=== PATIENT | male | born 1965 | race American Indian/Alaskan Native ===

== ENCOUNTER 2020-08-28 15:33 | Emergency (ER) | payer SELFPAY ==
--- NOTE | 2020-08-28 16:15 | Event Note ---
ED Screening Note Date of service: 08/28/20 Time: 16:12 ED Screening Note: Patient complains of substernal pain x2 days States he thought it was heartburn he has been taking Tums and Maalox without improvement in his symptoms Denies past medical history shortness of breath This initial assessment/diagnostic orders/clinical plan/treatment(s) is/are subject to change based on patients health status, clinical progression and re- assessment by fellow clinical providers in the ED. Further treatment and workup at subsequent clinical providers discretion. Patient/guardian urged not to elope from the ED as their condition may be serious if not clinically assessed and managed. Initial orders include: CXR ekg labs
[2020-08-28 16:48] LABS: Basophils # (Auto) 0.1 K/mm3 (0.0-0.1); Basophils % (Auto) 1.5 % (0.0-1.8); Eosinophils # (Auto) 0.2 K/mm3 (0.0-0.4); Eosinophils % (Auto) 4.1 % (0.0-4.3); Hematocrit 39.8 % (35.5-45.6); Hemoglobin 13.2 gm/dl (11.8-15.2); Lymphocytes # (Auto) 1.5 K/mm3 (1.2-5.4); Lymphocytes % (Auto) 30.8 % (13.4-35.0); Mean Corpuscular HGB Conc 33 % (32-34); Mean Corpuscular Volume 85 fl (84-94); Monocytes # (Auto) 0.3 K/mm3 (0.0-0.8); Monocytes % (Auto) 6.6 % (0.0-7.3); Platelet Count 321 K/mm3 (140-440); Red Cell Distribution Width 12.9 % (13.2-15.2)
[2020-08-28 17:00] LABS: Alanine Aminotransferase 15 units/L (7-56); Albumin 4.3 g/dL (3.9-5); BUN/Creatinine Ratio 26; Blood Urea Nitrogen 21 mg/dL (9-20); Calcium 10.2 mg/dL (8.4-10.2); Hemolysis Index 7
--- NOTE | 2020-08-28 17:11 | XRay Report ---
CHEST 2 VIEWS INDICATION: Chest Pain. COMPARISON: None FINDINGS: Support devices: None. Heart: Within normal limits. Lungs: No acute air space or interstitial disease. Pleura: No significant pleural effusion. No pneumothorax. Additional findings: None. IMPRESSION: 1. No acute findings. Signer Name: Jatinder Manzo MD Signed: 08/28/2020 5:07 PM Workstation Name: [id number]
[2020-08-28] MEDS ORDERED: LIDOCAINE VISCOUS 2% 15 ML ORAL LIQD PO ONE (20:45)
[2020-08-28] MEDS ORDERED: ALUM-MAG HYDROXIDE-SIMETHICONE 200-200-20MG/5ML ORAL LIQD 30 ML PO ONE (20:45)
[2020-08-28 21:05] VITALS: BP 165/91
--- NOTE | 2020-08-28 21:13 | Emergency Department Report ---
ED Chest Pain HPI - General Chief Complaint: Chest Pain Stated Complaint: HEARTBURN Time Seen by Provider: 08/28/20 16:11 Source: patient Mode of arrival: Ambulatory Limitations: No Limitations - History of Present Illness Initial Comments: 55-year-old male, history of acid reflux, presents to ED with acid reflux symptoms. Patient reports symptom onset after eating last night. Patient states he ate "soul food" for dinner, which included turkey wings, macaroni and cheese, green beans. Patient reports burning sensation in epigastric and substernal chest area, worse when laying down. Improved with sitting up. He reports this always happens when he eats certain foods. Patient denies any nausea or vomiting, shortness of breath, diaphoresis. Patient states he took some [id number]-[id number] medication but that has not improved his symptoms. Annel nt reports when this happened before and he came to the emergency room he was given something to drink which made his symptoms better. Patient reports minimal alcohol use. However, patient does smoke cigarettes. States he is attempting to stop smoking. MD Complaint: chest pain -: Last night Onset: after eating Pain Location: substernal, epigastric Pain Radiation: none Severity: moderate Severity scale (0 -10): 0 Quality: other (Burning) Consistency: intermittent Improves With: leaning foward Worsens With: eating re: denies: nausea, vomting, diaphoresis, dyspnea Other Symptoms: denies: cough, fever, leg swelling - Related Data Previous Rx's Medication Instructions Recorded Last Taken Type Ibuprofen [Motrin] 800 mg PO Q8H PRN #60 tablet 01/25/15 Unknown Rx Penicillin Vk [Veetids TAB] 500 mg PO QID #40 tablet 01/25/15 Unknown Rx traMADoL [Ultram] 50 mg PO Q6HR PRN #14 tablet 01/25/15 Unknown Rx Pantoprazole [Protonix] 40 mg PO QDAY #30 tablet 08/28/20 Unknown Rx Allergies Allergy/AdvReac Type Severity Reaction Status Date / Time No Known Allergies Allergy Unverified 01/25/15 02:33 Heart Score - HEART Score History: Slightly suspicious EKG: Normal Age: 45-65 Risk factors: 1-2 risk factors Troponin: < normal limit HEART Score: 2 ED Review of Systems ROS: Stated complaint: HEARTBURN Other details as noted in HPI Comment: All other systems reviewed and negative Constitutional: denies: chills, fever Respiratory: denies: shortness of breath Cardiovascular: chest pain Gastrointestinal: denies: nausea, vomiting ED Past Medical Hx - Surgical History Additional Surgical History: L ear surgery as a child - Social History Smoking Status: Current Every Day Smoker Substance Use Type: None - Medications Home Medications: Home Medications Medication Instructions Recorded Confirmed Last Taken Type Ibuprofen [Motrin] 800 mg PO Q8H PRN #60 tablet 01/25/15 Unknown Rx Penicillin Vk [Veetids TAB] 500 mg PO QID #40 tablet 01/25/15 Unknown Rx traMADoL [Ultram] 50 mg PO Q6HR PRN #14 tablet 01/25/15 Unknown Rx Pantoprazole [Protonix] 40 mg PO QDAY #30 tablet 08/28/20 Unknown Rx ED Physical Exam - General Limitations: No Limitations General appearance: alert, in no apparent distress - Head Head exam: Present: atraumatic, normocephalic - Eye Eye exam: Present: normal appearance, EOMI - ENT ENT exam: Present: mucous membranes moist - Neck Neck exam: Present: normal inspection - Respiratory Respiratory exam: Present: normal lung sounds bilaterally. Absent: respiratory distress - Cardiovascular Cardiovascular Exam: Present: regular rate, normal rhythm - GI/Abdominal GI/Abdominal exam: Present: soft. Absent: distended, tenderness - Extremities Exam Extremities exam: Present: normal inspection - Neurological Exam Neurological exam: Present: alert, oriented X3 - Psychiatric Psychiatric exam: Present: normal affect, normal mood - Skin Skin exam: Present: warm, dry, intact, normal color ED Course Vital Signs 08/28/20 08/28/20 16:12 21:04 Temperature 98.5 F Pulse Rate 71 75 Respiratory 18 16 Rate Blood Pressure 98/78 165/91 [Right] O2 Sat by Pulse 97 98 Oximetry ED Medical Decision Making - Lab Data Result diagrams: 08/28/20 16:21 08/28/20 16:21 - EKG Data -: EKG Interpreted by Me EKG shows normal: sinus rhythm, axis, intervals, QRS complexes, ST-T waves Rate: normal - EKG Data Interpretation: no acute changes - Radiology Data Radiology results: report reviewed, image reviewed - Medical Decision Making 55-year-old male with GERD. EKG shows no ST changes. Troponin negative x2. Patient reports relief with GI cocktail. Will discharge at this time. Prescriptions given. Return precautions given. - Differential Diagnosis GERD, ACS Critical care attestation.: If time is entered above; I have spent that time in minutes in the direct care of this critically ill patient, excluding procedure time. ED Disposition Clinical Impression: GERD (gastroesophageal reflux disease) Disposition: TO HOME OR SELFCARE Is pt being admited?: No Condition: Stable Instructions: Indigestion, [id number], Food Choices for Gastroesophageal Reflux Disease, Adult Prescriptions: Pantoprazole [Protonix] 40 mg PO QDAY #30 tablet Referrals: PRIMARY CARE, [Primary Care Provider] - 3-5 Days [facility] [Provider Group] - 3-5 Days Time of Disposition: 21:29
== END 2020-08-28 22:00 | disposition home or self-care (01) ==
LOC: ED 15:33
DX: K21.9 Gastro-esophageal reflux disease without esophagitis (principal); F17.200 Nicotine dependence, unspecified, uncomplicated; Z79.899 Other long term (current) drug therapy
CPT/HCPCS: 36415; 71046; 80053; 83690; 84484; 85025; 93005

== ENCOUNTER 2021-02-16 19:16 | Emergency (ER) | payer OTHER | END 2021-02-16 19:21 | disposition left against medical advice (07) | LOC: ED 19:16 | DX: R42 Dizziness and giddiness (principal); Z53.21 Procedure and treatment not carried out due to patient leaving prior to being seen by health care provider ==